=== PATIENT | male | born 1965 | race Two or more races ===

== ENCOUNTER → 2023-12-31 | Outpatient (CLI) | payer MEDICAID, SELFPAY ==
--- NOTE | 2023-12-31 16:30 | XR_ITS ---
Examination: CT abdomen and pelvis without contrast. Coronal 3-D reconstructions. Sagittal 2-D reconstructions. Date and time of exam:December 31, 2023 1641 hours INDICATIONS: Fatty liver diagnosis 06/22/2023, diagnosis other specified diseases of the liver CTDI: vol (mGy): 8.75 DLP: (mGycm): 552 Technique: Axial images of the abdomen have been obtained, 3 mm slice thickness Intravenous contrast material has not been administered. Low dose protocols were performed. One or more of the following dose reduction techniques were used; automated exposure control, adjustment of the mA and/or KV according to patient size, use of iterative reconstruction technique. Findings: 6 mm pulmonary nodule right middle lobe 2 mm pulmonary nodule right lower lobe Mildly dilated bronchi in the lower lobes No focal liver or splenic lesions No gallstones No pancreatic or adrenal mass 5.5 cm left renal cyst No hydronephrosis Aorta normal size Normal appendix No bowel obstruction No diverticulitis Urinary bladder intact No prostatomegaly IMPRESSION: Noncalcified pulmonary nodules as above, recommend CT chest without contrast follow-up to exclude pulmonary nodular metastatic disease No focal liver lesions No renal or ureteral calculi Normal appendix No bowel obstruction diverticulitis or free air
== END | disposition home or self-care (01) ==
LOC: CCTX 16:09
PROVIDERS: PCP Physician Assistant; Referring Provider Physician Assistant; Visit Provider Physician Assistant
DX: R91.8 Other nonspecific abnormal finding of lung field (principal)
CPT/HCPCS: 74176

== ENCOUNTER 2024-02-07 11:34 | Outpatient (RCR) | payer MEDICAID, SELFPAY | END 2024-03-07 23:59 | disposition home or self-care (01) | LOC: CPTX 11:34 | PROVIDERS: PCP Nurse Practitioner Gerontology; Referring Provider Nurse Practitioner Gerontology; Visit Provider Nurse Practitioner Gerontology | DX: Z53.8 Procedure and treatment not carried out for other reasons (principal) ==

== ENCOUNTER 2024-03-06 08:30 | Outpatient (RCR) | payer MEDICAID, SELFPAY ==
--- NOTE | 2024-02-27 11:49 | PTNOTE_ITS ---
PT OP Initial Eval Patient Information Outpatient Physical Therapy Treatment Date: 02/27/24 Visit Reasons: RT hand surgery Medical Diagnosis: R20.2; D16.11 Treatment Dx #1: Right Hand Mobility Deficits Treatment Dx #2: Right Hand Pain Start of Care: 02/27/24 Date of Onset: 12/25/23 Smoking Status Smoking Status: Never smoker Initial Assessment Subjective: Pt is a 58 y/o male s/p right hand neuroma removal 12/25/23. Pt mentioned his hand has worsen since the procedure. Pt still has a lot of pain (7/10) with numbness down to the thumb and index finger. Pt has limitation with gripping, lifting, chores, self care, cooking, work duties, and performing recreational activities. 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 Pt will attempt physical therapy if pain persist Pt will be refer back to provider for further consultation. Short Term and Shelter Goals 1) Increase right wrist AROM WFL in 6 wks to be able to perform chores 2) Decrease hand pain to 2/10 in 6 wks to be able to perform self care activities 3) Increase wrist MMTs grossly to 3+/5 in 6 wks to be able to perform recreational activities 4) Indep with HEP Treatment Plan 1) Manual Therapy 2) Therapeutic Activities 3) Therapeutic Exercises 4) Modalities (ice, heat) Frequency and Duration: 2 x wk for 6 wks Certification Dates: 02/27/24 to 05/27/24 Procedure Charges OP PT Eval Mod Complex 30 minutes: Yes
--- NOTE | 2024-03-06 08:59 | PT.ODAYNRPT ---
PT Outpatient Daily Note OP Daily Note Outpatient Physical Therapy Treatment Date: 03/06/24 Visit Reasons: RT hand surgery Subjective: Pt reports hand is very tender and painful. Pt has trouble sleeping and feels the finger tips are cold. Objective: Please see flow sheet for ther ex list. Assessment: Pt presents with high pain and TTP limiting participation. Plan: Continue with POC. Length of Time (minutes) of Treatment: 30 Minutes Procedure Charges Therapeutic Exercise 30 minutes: Yes
== END 2024-03-07 23:59 | disposition home or self-care (01) ==
LOC: CPTX 08:30
PROVIDERS: PCP Nurse Practitioner Gerontology; Referring Provider Nurse Practitioner Gerontology; Visit Provider Nurse Practitioner Gerontology
DX: M79.641 Pain in right hand (principal); R20.2 Paresthesia of skin; R20.0 Anesthesia of skin; D16.11 Benign neoplasm of short bones of right upper limb
CPT/HCPCS: 97110; 97162

== ENCOUNTER 2024-03-26 08:30 | Outpatient (RCR) | payer MEDICAID, SELFPAY ==
--- NOTE | 2024-03-14 12:05 | PT.ODAYNRPT ---
PT Outpatient Daily Note OP Daily Note Outpatient Physical Therapy Treatment Date: 03/14/24 Visit Reasons: right hand surgery Subjective: Pt recently seen surgoen and clear for heat or ice on the wrist. According to patient surgeon did put a plate at the surigcal site which is similar to a sheath. Pt still has finger sensitivity limiting ability to use the hand as much. Objective: Please see flow chart for list of ther ex performed Assessment: slight improvement with finger PROM post PT session. pre heat with finger wrapped into flexion helped overall flexion mobility Plan: Continue with PT Length of Time (minutes) of Treatment: 30 Minutes Procedure Charges Therapeutic Exercise 30 minutes: Yes
--- NOTE | 2024-03-18 12:31 | PTNOTE_ITS ---
PT Outpatient Daily Note OP Daily Note Outpatient Physical Therapy Treatment Date: 03/18/24 Visit Reasons: right hand surgery Subjective: Pt's hand is okay. Pt still has trouble flexing his finger and making a fist. Objective: Please see flow chart for list of ther ex performed Assessment: slow progress with finger flexion due to poor tolerance to stretching and ex ercises from hypersensitivity Plan: Continue with PT Length of Time (minutes) of Treatment: 30 Minutes Procedure Charges Therapeutic Exercise 30 minutes: Yes
--- NOTE | 2024-03-20 09:38 | PT.ODAYNRPT ---
PT Outpatient Daily Note OP Daily Note Outpatient Physical Therapy Treatment Date: 03/20/24 Visit Reasons: right hand surgery Subjective: Pt reports R hand movement is slowly progressing but continues to have pain and high sensitivity. Objective: Please see flow sheet for ther ex list. Assessment: Performed PROM to pt tolerance. Pt performed light gripping activities with minimal pain. Plan: Continue with pOC. Length of Time (minutes) of Treatment: 30 Minutes Procedure Charges Therapeutic Exercise 30 minutes: Yes
--- NOTE | 2024-03-26 08:57 | PT.ODAYNRPT ---
PT Outpatient Daily Note OP Daily Note Outpatient Physical Therapy Treatment Date: 03/26/24 Visit Reasons: right hand surgery Subjective: Pt reports hand is doing ok, still numb and painful. Pt mentioned prescribed him new medication for nerve pain, pt said it helped for pain but was having side effects such as sleepiness, drowsiness, itchy, anxious pt stopped taking it. Objective: Please see flow sheet for ther ex list. Assessment: Pt completes interventions with pain and tingling and numbing that reduce or resolve post there ex. Plan: Continue with pOC. Length of Time (minutes) of Treatment: 30 Minutes Procedure Charges Therapeutic Exercise 30 minutes: Yes
== END 2024-04-04 23:59 | disposition home or self-care (01) ==
LOC: CPTX 08:30
PROVIDERS: PCP Nurse Practitioner Gerontology; Referring Provider Nurse Practitioner Gerontology; Visit Provider Nurse Practitioner Gerontology
DX: M79.641 Pain in right hand (principal); R20.2 Paresthesia of skin; R20.0 Anesthesia of skin; D16.11 Benign neoplasm of short bones of right upper limb; Z98.890 Other specified postprocedural states
CPT/HCPCS: 97110

== ENCOUNTER 2024-05-01 09:00 | Outpatient (RCR) | payer MEDICAID, SELFPAY ==
--- NOTE | 2024-04-16 10:54 | PT.ODAYNRPT ---
PT Outpatient Daily Note OP Daily Note Outpatient Physical Therapy Treatment Date: 04/16/24 Visit Reasons: right hand surgery Subjective: Pt still cant feel his right hand. Pt recently burnt left hand due to decrease sensation. Pt will be seeing provider seen for referral to a specialist in [place]. Objective: Please see flow chart for list of ther ex performed Assessment: minimal progress with finger AROM noted. Slow improvement with hand sensitivity where patient can perform more hand exercises Plan: Continue with PT Length of Time (minutes) of Treatment: 30 Minutes Procedure Charges Therapeutic Exercise 30 minutes: Yes
--- NOTE | 2024-04-23 08:17 | PT.ODAYNRPT ---
PT Outpatient Daily Note OP Daily Note Outpatient Physical Therapy Treatment Date: 04/23/24 Visit Reasons: right hand surgery Subjective: Pt reports hand is really painful and sensitive today. Pt has a follow up with MD tomorrow, as per pt he has not been taking medication from doctor due to side effects. Objective: Please see flow sheet for ther ex list. Assessment: pt continues to present in clinic with high pain, limiting participation in clinic. Pt TTP on finger tips, palm and wrist. Plan: Continue with POC. Length of Time (minutes) of Treatment: 30 Minutes Procedure Charges Therapeutic Exercise 30 minutes: Yes
--- NOTE | 2024-05-01 10:29 | PT.ODAYNRPT ---
PT Outpatient Daily Note OP Daily Note Outpatient Physical Therapy Treatment Date: 05/01/24 Visit Reasons: right hand surgery Subjective: Pt's hand and finger tips continue to be numb with activities leading to less hand usage. Objective: Please see flow chart for list of ther ex performed Assessment: minimal progress with hand exercises due to intense pain and poor tolerance to exercises Plan: Continue with PT Length of Time (minutes) of Treatment: 30 Minutes Procedure Charges Therapeutic Exercise 30 minutes: Yes
== END 2024-05-05 23:59 | disposition home or self-care (01) ==
LOC: CPTX 09:00
PROVIDERS: PCP Nurse Practitioner Gerontology; Referring Provider Nurse Practitioner Gerontology; Visit Provider Nurse Practitioner Gerontology
DX: M79.641 Pain in right hand (principal); R20.2 Paresthesia of skin; D16.11 Benign neoplasm of short bones of right upper limb; Z98.890 Other specified postprocedural states
CPT/HCPCS: 97110

== ENCOUNTER 2024-05-21 08:00 | Outpatient (RCR) | payer MEDICAID, SELFPAY ==
--- NOTE | 2024-05-07 09:26 | PTNOTE_ITS ---
PT Outpatient Daily Note OP Daily Note Outpatient Physical Therapy Treatment Date: 05/07/24 Visit Reasons: right hand surgery Subjective: Pt's hand is no better. Pt continues to have sensitivity and burning pain when he uses the right hand. Pt is unable to get is special brace in [place] due to no MD order only authorization sent to him. Pt has a follow up appt with surgeon on 05/19/24 Objective: Please see flow chart for list of ther ex performed Assessment: able to tolerate passive stretching into flexion a little longer Plan: Continue with PT Length of Time (minutes) of Treatment: 30 Minutes Procedure Charges Therapeutic Exercise 30 minutes: Yes
--- NOTE | 2024-05-21 08:35 | PTNOTE_ITS ---
PT Outpatient Daily Note OP Daily Note Outpatient Physical Therapy Treatment Date: 05/21/24 Visit Reasons: right hand surgery Subjective: Pt reports hand continues to be painful, sensitive and weak. 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 As per pt he had a follow up with surgeon, pt will be referred to [place] for a second opionion. Objective: Please see flow sheet for ther ex list. Assessment: Pt demonstrates poor activity tolerance due to increase pain with light ROm interventions. Plan: Assess for note, pt has one more visit. Length of Time (minutes) of Treatment: 30 Minutes Procedure Charges Therapeutic Exercise 30 minutes: Yes
--- NOTE | 2024-05-28 08:20 | PT.ODS1RPT ---
PT OP Progress/Discharge Note Date of Service: 05/28/24 Progress Note/DC Note Progress Note/Discharge Note: DC Note Patient Information Visit Reasons: right hand surgery Service Discharge Date: 05/28/24 Status Assessment: Pt has been seen for 12 visits (eval + 11 visits). At this time Pt will be d/c from care due to plan of care 05/28/24. Pt did not meet set goals in therapy. Pt will reach out to surgeon's office for a new MD order and authorization; thank you for your referrals
== END 2024-06-04 23:59 | disposition home or self-care (01) ==
LOC: CPTX 08:00
PROVIDERS: PCP Nurse Practitioner Gerontology; Referring Provider Nurse Practitioner Gerontology; Visit Provider Nurse Practitioner Gerontology
DX: M79.641 Pain in right hand (principal); R20.2 Paresthesia of skin; R20.0 Anesthesia of skin; D16.11 Benign neoplasm of short bones of right upper limb; Z98.890 Other specified postprocedural states
CPT/HCPCS: 97110

== ENCOUNTER 2024-06-20 07:51 | Outpatient (RCR) | payer MEDICAID, SELFPAY | END 2024-07-05 23:59 | disposition home or self-care (01) | LOC: CPTX 07:51 | PROVIDERS: PCP Surgery Surgery of the Hand; Referring Provider Surgery Surgery of the Hand; Visit Provider Surgery Surgery of the Hand | DX: Z53.8 Procedure and treatment not carried out for other reasons (principal) ==

== ENCOUNTER 2024-07-09 07:23 | Emergency (ER) | payer MEDICAID, SELFPAY ==
[2024-07-09 07:29] VITALS: BP 160/76; PULSE 82; RESP 18; TEMP 38.4; O2SAT 95; BMI 31.3
--- NOTE | 2024-07-09 07:33 | XR_ITS ---
Examination: PA lateral chest 2 views TECHNIQUE: Upright PA and lateral chest 2 views Date and time: July 09, 2024 0753 hours Comparison April 22, 2023 INDICATIONS: Cough and shortness of breath beginning 3 days ago. FINDINGS: Basilar bronchitis pattern Normal heart size No pulmonary edema IMPRESSION: Basilar bronchitis pattern
[2024-07-09 07:49] VITALS: TEMP 38.4
[2024-07-09] MEDS: ACETAMINOPHEN 500 MG TABLET 1000 MG PO (07:49)
--- NOTE | 2024-07-09 08:35 | EDNOTE_ITS ---
Upper Respiratory Inf. RME/HPI General Chief Complaint: Flu Like Symptoms Stated Complaint: Cough and upper back pain Time Seen by Provider: 07/09/24 07:27 Arrival date/time: 07/09/24 07:23 58-year-old male presents emergency department today for complaint of cough, congestion, fever ongoing x 1 day. Patient reports no chest pain no shortness of breath no headache dizziness or weakness. Patient does report generalized body aches Limitations: no limitations Related Data Previous Rx's ?Medication ?Instructions ?Recorded cetirizine 10 mg capsule (Zyrtec) 10 mg PO QDAY #30 ca ps 08/22/22 hydroxyzine HCl 25 mg tablet 25 mg PO QID PRN itching #30 tabs 08/22/22 methylprednisolone 4 mg tablets in See Rx Instructions .Route 08/22/22 a dose pack (Medrol (Garcia)) .COMPLEX #21 tabs azithromycin 500 mg tablet See Rx Instructions PO .COM PLEX #6 07/09/24 tabs benzonatate 100 mg capsule 100 mg PO TID #14 caps 05/30 ibuprofen 800 mg tablet 800 mg PO TID PRN pain #30 t abs 07/09/24 Allergies Allergy/AdvReac Type Severity Reaction Status Date / Time No Known Allergies Allergy Verified 07/09/24 07:26 Review of Systems Review of Systems Systems Reviewed: All systems reviewed, normal except as documented Constitutional Constitutional: Reports system reviewed and no additional complaints, except as documented, Denies fever(s) and Denies headache(s) Eyes Eyes: Reports system reviewed and no additional complaints, except as documented and Denies blurry vision ENT Ears, Nose, Mouth, and Throat: Reports system reviewed and no additional complaints, except as documented, Denies headache(s), Reports nasal congestion and Reports nasal discharge Cardiovascular Cardiovascular: Reports system reviewed and no additional complaints, except as documented, Denies chest pain and Denies dyspnea Respiratory Respiratory: Reports system reviewed and no additional complaints, except as documented, Reports chest congestion, Reports cough and Denies dyspnea Gastrointestinal Gastrointestinal: Reports system reviewed and no additional complaints, except as documented and Denies abdominal pain Integumentary/Breasts Skin/Breast: Reports system reviewed and no additional complaints, except as documented and Denies rash Neurologic Neurologic: Reports system reviewed and no additional complaints, except as documented, Reports as per HPI and Denies headache(s) Past Medical History Past Medical History NEUROLOGIC: Negative Neurological Disorders or Seizures CARDIAC: Positive Cardiac Disorders and Hypertension; Negative Congestive Heart Failure RESPIRATORY: Negative Chronic Obstructive Pulmonary Disease (COPD), Tuberculosis, Pulmonary Embolism or Sleep Apnea GASTROINTESTINAL: Positive Gastrointestinal Disorders and Gastroesophageal Reflux Disease (TAKES OTC); Negative Hepatitis GENITOURINARY: Positive Genitourinary Disorders (CYST ON KIDNEY); Negative Renal Disease MUSCULOSKELETAL: Positive Musculoskeletal Disorders, Arthritis, Carpal Tunnel Syndrome (NOÉ HAND) and Fractures (RIGHT COLLARBONE DUE TO FALL AT 8TH GRADE NO SURG,LEFT KNEE NO MINA LT HAND) ENDOCRINE: Negative Endocrine Disorders, Diabetes Mellitus Type 1 or Diabetes Mellitus Type 2 HEMATOLOGIC: Negative Blood Disorders OTHER HISTORY: 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)) and Chicken Pox; Negative Hospitalization, Shingles, Falls, Blood Transfusions, Blood Transfusion Reaction, Anesthesia Reactions, Chemotherapy, Radiation Therapy, MRSA, Measles, Mumps or Cancer Family History FAMILY HISTORY: Positive Family Psychiatric Problems (SISTER (DEPRESSION,ANXIETY)), Family Cardiac Disorders (MOTHER,BROTHER (CHF)MOTHER,FATHER,BROTHER,SISTER (HTN) and Family Surgery (MOTHER,SISTER); Negative Family Respiratory Disorders, Family Gastrointestinal Problems, Family Cancer or Family Anesthesia Reaction Social History SMOKING STATUS: Never smoker ED Exam General Limitations: Present no limitations General appearance: Present alert and in no apparent distress Head Head exam: Present atraumatic, normocephalic and normal inspection Eye Eye exam: Present normal appearance, PERRL and EOMI; Absent conjunctival injection ENT ENT exam: Present normal exam, normal oropharynx and mucous membranes moist Neck Neck exam: Present normal inspection, full ROM and trachea midline Chest Chest inspection: Present normal inspection and symmetric chest wall rise Respiratory Respiratory exam: Present normal lung sounds bilaterally; Absent respiratory distress, wheezes, stridor, accessory muscle use or prolonged expiratory phase Cardiovascular Cardiovascular exam: Present regular rate, normal rhythm and normal heart sounds Abdominal Exam Abdominal exam: Present soft and normal bowel sounds; Absent distention, tenderness, guarding, rebound or rigidity Extremities Exam Extremities exam: Present normal inspection and full ROM Back Exam Back exam: Present normal inspection and full ROM Neurological Exam Neurological exam: Present alert, oriented X3 and CN II-XII intact Psychiatric Psychiatric exam: Present normal affect and normal mood Skin Skin exam: Present warm, dry, intact and normal color Course Quality Measures none Orders Category Date Time Status Bedside COVID-19 Antigen Test NOW Care 07/09/24 07:33 Completed Bedside Influenza A&B Antigen Test NOW Care 07/09/24 07:33 Completed XR chest 2V Stat Exams 07/09/24 07:33 Completed Acetaminophen Tab [Tylenol ES Tab] Med 07/09/24 07:33 Discontinued 1,000 mg PO X1 ONE Vital Signs Vital signs: Vital Signs Temperature 101.2 F H 07/09/24 07:29 Pulse Rate 82 07/09/24 07:29 Respiratory Rate 18 07/09/24 07:29 Blood Pressure 160/76 H 07/09/24 07:29 Pulse Oximetry (%) 95 07/09/24 07:29 Oxygen Delivery Method Room Air 07/09/24 07:29 O2 saturation 95% room air with normal limits Upper Respiratory Infection MDM Narrative MDM Narrative:: 58-year-old male presents emergency department today for complaint of cough, congestion, fever ongoing x 1 day. Patient reports no chest pain no shortness of breath no headache dizziness or weakness. Patient does report generalized body aches On exam despite the patient having fever patient does not appear ill or toxic in no acute distress Patient given medication for fever Chest x-ray influenza obtained Influenza negative x-ray consistent with bronchitis which consistent with patient's symptoms As patient does not appear ill or toxic in no acute distress patient be discharged home at this time Patient discharged home in no distress to follow-up with primary care doctor in the next 24 to 48 hours and for any worsening symptoms to return to the ER immediately Patient data External records reviewed:: [facility] previous records Clinical information provided by:: patient Social determinants that could affect healthcare access:: none Patient has the following chronic illnesses:: None How is presenting disease/condition affected by chronic disease/condition?: no chronic disease Evaluation data The following diagnostics were reviewed and interpreted by me:: lab results and radiology exam(s) Lab and/or radiology exams considered but not ordered:: Labs radiology obtained Interpretation Summary: By me Medications / Prescriptions Medications or Prescriptions considered but not ordered:: Given Medication administrations:: Medication Administration History Discontinued Medications Acetaminophen (Acetaminophen 500 Mg Tablet) 1,000 mg PO X1 ONE Stop: 07/09/24 07:34 Last Admin: 07/09/24 07:49 Dose: 1,000 mg Documented By: Given Consultations Consultation(s) initiated? (list below): No Diagnosis Upper Respiratory Differential Diagnosis: upper respiratory infection, sinusitis, viral infection and bronchitis Most likely diagnosis given after review of the tests above:: URI Admission Indicated Admission indicated?: not indicated Admission Request Was there a request for admission?: No Disposition Plan Disposition Plan: Discharge Discharge Attestation Discharge Attestation: The patient and all family members were given an opportunity to ask questions and understood the discharge instructions. Discharge instructions specifically effects, indications for sooner follow up or return to the emergency department, and the expected course of current diagnosis. Patient condition: Stable Discharge Plan Plan Patient Disposition: HOME (Self Care) Discharge Disposition comment: stable Prescriptions/Referrals Prescriptions/Med Rec: New ibuprofen 800 mg tablet 800 mg PO TID PRN (Reason: pain) Qty: 30 0RF benzonatate 100 mg capsule 100 mg PO TID Qty: 14 0RF azithromycin 500 mg tablet See Rx Instructions .ROUTE .COMPLEX Qty: 6 0RF Rx Instructions: take 500 mg today (day 1), then 250 mg for 4 days (days 2-5) No Action hydroxyzine HCl 25 mg tablet 25 mg PO QID PRN (Reason: itching) Qty: 30 0RF methylprednisolone [Medrol (Garcia)] 4 mg tablets,dose pack See Rx Instructions .ROUTE .COMPLEX Qty: 21 0RF Rx Instructions: Medrol Dose Garcia use as directed on package label Zyrtec 10 mg capsule 10 mg PO QDAY Qty: 30 0RF Referrals: Kristy Hill PA-C [Primary Care Provider] - 07/10/24 Problem List Clinical Impression: Upper respiratory infection Patient/Caregiver Discharge Instructions Education Materials: ED URI, Viral, No Abx (Adult) Additional Instructions: Please follow up with your primary care doctor in the next 24-48hrs for any worsening symptoms return here immediately Print Language: Japanese Stand Alone Forms: Sol Award Info., Patient Portal Info Letter PA/BRIANA Supervising Physician PA/BRIANA Supervising Physician: dr sue
[2024-07-09 08:55] VITALS: TEMP 37.6
== END 2024-07-09 08:57 | disposition home or self-care (01) ==
PROVIDERS: Emergency Provider Emergency Medicine; PCP Physician Assistant
DX: J06.9 Acute upper respiratory infection, unspecified (principal)
CPT/HCPCS: 71046; 87400; 87811; 99283; A9270

== ENCOUNTER 2024-07-15 10:05 | Day surgery (SDC) | payer MEDICAID, SELFPAY ==
--- NOTE | 2024-07-14 07:00 | EKG_ITS ---
[facility] Test Date: 2024-07-14 Pat Name: ADRIANO CHOW Department: Room: - Gender: Male [employer] Analyst: : 1965 Requested By: Louisa Laws Order Number: [id number] Reading MD: Louisa Laws Measurements Intervals [place] Rate: 46 P: 45 HI: 177 QRS: 41 QRSD: 114 T: 57 QT: 417 QTc: 369 Interpretive Statements SINUS BRADYCARDIA MODERATE INTRAVENTRICULAR CONDUCTION DELAY [110+ ms QRS DURATION] NONSPECIFIC ST & T-WAVE ABNORMALITY Compared to ECG 04/22/2023 18:37:07 Intraventricular conduction delay now present T-wave abnormality still present /store/S0/[id number]/[id number].pdf
[2024-07-14 07:11] VITALS: BMI 29.9
--- NOTE | 2024-07-14 07:35 | SUR.PREOP ---
Pt came in on July 09 to ER, with RILEY, cough and fever, tested neg for covid and influenza, Chest Xray showed sadi bronchitis, was prescribed Z pack and sent home. today pt stated no fever, cough only. No SOB.
[2024-07-14 09:24] LABS: Basophils # (Auto) 0.1 Thou/mm3 (0.0-0.2); Basophils % (Auto) 1 % (0-2.5); Eosinophils # (Auto) 0.3 Thou/mm3 (0.0-0.5); Eosinophils % (Auto) 5 % (0-10); Hematocrit 41.2 % (41.0-53.0); Hemoglobin 14.4 g/dL (13.5-16.0); Immature Granulocytes % (Auto) 1 % (0-0); Immature Granulocytes Auto 0.05 Thou/mm3 (0.00-0.00); Lymphocytes # (Auto) 1.4 Thou/mm3 (1.0-4.8); Lymphocytes % (Auto) 23 % (10-50); Mean Corpuscular Hemoglobin 30.7 pg (25.0-35.0); Mean Corpuscular Volume 88 fL (80-100); Monocytes # (Auto) 0.5 Thou/mm3 (0.0-0.8); Monocytes % (Auto) 9 % (0-12); Neutrophils # (Auto) 3.6 Thou/mm3 (1.8-7.7); Neutrophils % (Auto) 62 % (37-80); Nucleated Red Blood Cell % 0 /100 WBC (0); Platelet Count 224 Thou/mm3 (140-440); RDW Standard Deviation 44.6 fL (35.1-43.9); Red Blood Count 4.69 Miln/mm3 (4.50-5.90); White Blood Count 5.9 Thou/mm3 (3.8-10.6)
[2024-07-14 09:28] LABS: Prothrombin Time 10.9 Seconds (9.0-12.2)
[2024-07-14 09:36] LABS: Alanine Aminotransferase 93 U/L (10-49); Albumin/Globulin Ratio 1.4 (1.2-2.2); Alkaline Phosphatase 95 U/L (46-116); Anion Gap 9 (7-16); BUN/Creatinine Ratio 10 Ratio (12-20); Bilirubin,Total 0.7 mg/dL (0.3-1.2); Blood Urea Nitrogen 10 mg/dL (9-23); Calcium 8.9 mg/dL (8.3-10.6); Calcium (Corrected) 8.9 mg/dL (8.5-10.1); Carbon Dioxide 26.6 mMol/L (20.0-31.0); Chloride 100 mMol/L (98-107); Estimated Creatinine Clearance 84.7 mL/min (>60); Globulin 2.9 gm/dL (2.3-3.5); Glucose 119 mg/dL (74-106); Osmolality,Calculated 271 (275-295); Potassium 3.7 mMol/L (3.4-5.1); Sodium 136 mMol/L (136-145); Total Protein 6.9 gm/dL (5.7-8.2); eGFR > 60 See Note
--- NOTE | 2024-07-14 13:13 | SUR.PREOP ---
Pt history recent bronchitis reviewed with Dr Linares. ok to proceed per Dr Linares.
[2024-07-15] VITALS (8 sets, daily range): BP systolic 142–166; BP diastolic 79–88; PULSE 45–59; RESP 14–23; TEMP 36.5–36.6; O2SAT 97–100; BMI 29.1
[2024-07-15] MEDS: RINGERS LACTATED 1000 ML 1,000 ML 20 ML IV (10:54)
--- NOTE | 2024-07-15 12:11 | PD.SUROPNT ---
Date of Procedure 07/15/24 Pre Op Diagnosis Symptomatic cholelithiasis Post Op Diagnosis Cholelithiasis with cholecystitis Procedure Laparoscopic cholecystectomy Findings Moderately distended gallbladder with multiple gallstones and chronic cholecystitis Procedure Description Patient was brought into the operating room in supine position. After administration of general endotracheal anesthesia abdomen was prepped and draped in standard surgical manner. A Veress needle was inserted through the umbilicus and pneumoperitoneum was obtained up to 15 mmHg. The Veress needle was then removed, a 5 mm infraumbilical incision was made and the 5mm trocar was inserted. Laparoscopic camera was placed. Under direct visualization a laparoscopic camera a 10 mm trocar was placed in subxiphoid and two 5 mm trocars placed in right upper quadrant. The gallbladder was identified and was noted to be moderately distended with multiple gallstones and chronic cholecystitis. It was retracted cephalad and laterally. Dissection started near the infundibulum of gallbladder where cystic duct and gallbladder junction clearly identified. The cystic duct was circumferentially dissected off the peritoneum and surrounding inflammatory tissue. The critical view of safety was clearly demonstrated. Cystic duct was then divided between 2 endoclips proximally and one distally. The cystic artery was similarly dissected and divided. The gallbladder was then from the liver bed using electrocautery. The gallbladder was then placed inside an Endo Catch and removed from the abdomen utilizing subxiphoid trocar site. The area was copiously and thoroughly washed and irrigated, all the fluid was suctioned and the suction fluid returned clear. Hemostasis achieved using electrocautery. Endoclips noted be in place and intact without any bleeding or any leakage. Hemostasis was adequate and satisfactory. The subxiphoid trocar sites fascial defect was closed with 0 Vicryl using Endo Closure device. Instruments and trocars removed, pneumoperitoneum was evacuated and the incisions closed with 4-0 Monocryl in subcuticular fashion. Instrument needle and sponge counts were all reported to be correct X2. Patient tolerated the procedure well, was extubated, breathing spontaneously and without difficulty and was transferred to postanesthesia care in stable condition. Anesthesia GETA and local Pathology / specimen Other (Gallbladder and contents) Estimated Blood Loss 10 Condition Stable Disposition PACU Surgeon Louisa Laws MD Surgical Staff Operation Date: 07/15/24 13:00 Case Staff Anesthesiologist: Sanjay Sanchez RN First Assistant: Agueda Stubbs
--- NOTE | 2024-07-15 12:31 | SUR.PHASEI ---
1216: Pt received in [facility] via gurney. Report from Con CRAVEN and Katiuska ALVARADO. Pt groggy, but awake. Resp even, unlabored. VS stable. Surgical sites x4 to abdomen secured with dermabond. No dressing. Sites clean, dry, intact with no abnormal swelling, discoloration. No c/o pain. 1234: Pt resting with no complaints voiced. Resp even, unlabored. VS stable. Surgical sites remain dry, clean, intact with no swelling, discoloration. States pain level very low 2/10 and only with movement.
[2024-07-15] MEDS: ONDANSETRON INJ 2 MG/ML INJ 2 ML 4 MG IVP (12:42)
--- NOTE | 2024-07-15 12:51 | SUR.PHASEII ---
1242: Pt stating he has nausea. Zofran given at this time.
--- NOTE | 2024-07-15 14:29 | SUR.PHASEII ---
1305: Pt stated nausea has subsided and he feels much better. Pt tolerating small amount of ice chips with no difficulty swallowing and no n/v. 1325: Pt fully awake, oriented x3. VS stable. Surgical sites remain dry, clean, intact with no swelling, discoloration. Pt states he has minimal pain with movement. Pt and brother stated understanding of discharge instructions. 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 Pt discharged from [facility] in stable condition.
== END 2024-07-15 13:25 | disposition home or self-care (01) ==
PROVIDERS: PCP Family Medicine; Referring Provider Surgery; Visit Provider Surgery
PROC: 0FT44ZZ Resection of Gallbladder, Percutaneous Endoscopic Approach (ICD-10-PCS; CPT 47562; principal; 2024-07-15 12:45)
DX: K80.10 Calculus of gallbladder with chronic cholecystitis without obstruction (principal); Z01.810 Encounter for preprocedural cardiovascular examination
CPT/HCPCS: 47562; 36415; 80053; 85025; 85610; 93005; A4217; A4649; J0694; J1100; J2405; J2704; J3010; J3490; J7120

== ENCOUNTER → 2024-09-26 | Outpatient (CLI) | payer MEDICAID, SELFPAY ==
--- NOTE | 2024-09-26 08:25 | XR_ITS ---
Examination: Hand, right 3 views Technique: Hand AP, oblique, lateral 3 views Date and time of exam: September 26, 2024 0827 hours, comparison January 25, 2023 INDICATIONS: Right hand pain and deformity for years, history 7 surgery to the hand. FINDINGS: Chronic deformities involving distal phalanges third and fourth digits No acute fracture No definite acute cortical bone destruction Amputation distal phalanx fifth digit, old No foreign bodies IMPRESSION: Chronic deformities third fourth and fifth digits
== END | disposition home or self-care (01) ==
LOC: CDIM 08:20
PROVIDERS: PCP Physician Assistant; Referring Provider Nurse Practitioner Gerontology; Visit Provider Nurse Practitioner Gerontology
DX: M20.091 Other deformity of right finger(s) (principal)
CPT/HCPCS: 73130